=== PATIENT | male | born 1955 | race Caucasian/White ===

== ENCOUNTER 2024-12-23 22:59 | Emergency (ER) | payer OTHER ==
[~2024-12-23] VITALS: Ht 185.4 cm; Wt 100.0 kg
[2024-12-23 23:03] VITALS: O2SAT 95
[2024-12-23] MEDS: IPRATROPIUM/ALBUTEROL 0.5-3(2.5)MG/3ML NEB HHN ONE (23:51)
[2024-12-24] MEDS ORDERED: AMOX1TAB16 MT (00:42)
[2024-12-24] MEDS ORDERED: AZIT250T12 MT (00:42)
[2024-12-24] MEDS ORDERED: ALBU18HF2 IH (00:42)
[2024-12-24] MEDS ORDERED: P50 MT (00:42)
[2024-12-24] MEDS: PREDNISONE 20MG TABLET PO ONE (01:37)
[2024-12-24] MEDS: AMOXICILLIN/POTASSIUM CLAVULANATE 875/125MG TAB PO ONE (01:38)
[2024-12-24] MEDS: ALBUTEROL 6.7GM HFA INHALER ORI STA (01:46)
[2024-12-24 01:56] VITALS: BP 151/72; PULSE 74; RESP 18; TEMP 36.7; O2SAT 96
== END 2024-12-24 02:00 | disposition home or self-care (01) ==
LOC: ER 22:59
DX: J16.8 Pneumonia due to other specified infectious organisms (principal); J45.909 Unspecified asthma, uncomplicated; E78.00 Pure hypercholesterolemia, unspecified; I10 Essential (primary) hypertension; Z86.718 Personal history of other venous thrombosis and embolism; Z87.891 Personal history of nicotine dependence
CPT/HCPCS: 99283; 71045; J7512